=== PATIENT | male | born 1980 | race Caucasian/White ===

== ENCOUNTER 2020-04-28 02:57 | Emergency (ER) | payer OTHER | END 2020-04-28 06:04 | disposition other institution (70) | LOC: ED 02:57 | DX: Z02.89 Encounter for other administrative examinations (principal) ==

== ENCOUNTER 2020-04-28 02:57 | Emergency (ER) | payer SELFPAY ==
[~2020-04-28] VITALS: Ht 162.6 cm; Wt 90.7 kg
[2020-04-28 03:00] VITALS: Ht 162.6 cm; Wt 90.7 kg
[2020-04-28 05:46] VITALS: BP 165/95
== END 2020-04-28 06:04 | disposition other institution (70) ==
LOC: ED 02:57
DX: F19.10 Other psychoactive substance abuse, uncomplicated (principal); R41.0 Disorientation, unspecified
CPT/HCPCS: J1630; J2060